=== PATIENT | female | born 1980 | race Hispanic/Latino ===

== ENCOUNTER 2025-02-28 11:19 | Outpatient (CLI) | payer OTHER | END 2025-02-28 11:20 | disposition home or self-care (01) | LOC: ULT 11:19 | DX: T83.32XA Displacement of intrauterine contraceptive device, initial encounter (principal); N93.9 Abnormal uterine and vaginal bleeding, unspecified; N85.8 Other specified noninflammatory disorders of uterus; N83.201 Unspecified ovarian cyst, right side | CPT/HCPCS: 76856 ==